=== PATIENT | female | born 1945 | race Caucasian/White ===

== ENCOUNTER → 2017-01-03 | Outpatient (CLI) | payer OTHER | LOC: BHFA 13:30 | PROVIDERS: ATTEND Internal Medicine Cardiovascular Disease | DX: R52 Pain, unspecified (principal); E78.5 Hyperlipidemia, unspecified ==

== ENCOUNTER 2017-09-05 20:12 | Emergency (ER) | payer OTHER ==
[2017-09-05] MEDS ORDERED: KETOROLAC 30 MG/1 ML SDV IM ONE (20:32)
--- NOTE | 2017-09-05 20:35 | EDPHY ---
H & P Time Seen by Provider: 09/05/17 20:22 HPI/ROS: CHIEF COMPLAINT: Right rib pain HISTORY OF PRESENT ILLNESS: The patient is a 72-year-old female who fell and hit the right side of her ribs on the toilet paper [place] early this afternoon. She had been drinking prior to that. She has had persistent rib pain on the right ever since. It hurts with laughing. No pain with deep inspiration. She denies shortness of breath. She denies abdominal pain. No head injury. No loss of consciousness. She lost her balance in the bathroom. This was a mechanical fall. She also reports a history of esophageal cancer with large doses of radiation and refuses to have any imaging done here. She also is currently dealing with shingles to the right gluteus. She took hydrocodone this afternoon for that. REVIEW OF SYSTEMS: Constitutional: denies: chills, fever, recent illness, recent injury EENTM: denies: blurred vision, double vision, nose congestion Respiratory: denies: cough, shortness of breath Cardiac: denies: chest pain, irregular heart rate, lightheadedness, palpitations Gastrointestinal/Abdominal: denies: abdominal pain, diarrhea, nausea, vomiting, blood streaked stools Genitourinary: denies: dysuria, frequency, hematuria, pain Musculoskeletal: See HPI Skin: denies: lesions, rash, jaundice, bruising Neurological: denies: headache, numbness, paresthesia, tingling, dizziness, weakness Hematologic/Lymphatic: denies: blood clots, easy bleeding, easy bruising Immunologic/allergic: denies: HIV/AIDS, transplant EXAM: GENERAL: Well-appearing, well-nourished and in no acute distress. HEAD: Atraumatic, normocephalic. EYES: Pupils equal round and reactive to light, extraocular movements intact, sclera anicteric, conjunctiva are normal. ENT: TMs normal, nares patent, oropharynx clear without exudates. Moist mucous membranes. NECK: Normal range of motion, supple without lymphadenopathy or JVD. LUNGS: Breath sounds clear to auscultation bilaterally and equal. No wheezes rales or rhonchi. Mild right anterior rib tenderness. No crepitus HEART: Regular rate and rhythm without murmurs, rubs or gallops. ABDOMEN: Soft, nontender, normoactive bowel sounds. No guarding, no rebound. No masses appreciated. BACK: No CVA tenderness, no spinal tenderness, step-offs or deformities EXTREMITIES: Normal range of motion, no pitting or edema. No clubbing or cyanosis. NEUROLOGICAL: Cranial nerves II through XII grossly intact. Normal speech, normal gait. 5/5 strength, normal movement in all extremities, normal sensation PSYCH: Normal mood, normal affect. SKIN: Warm, dry, normal turgor, no visible rashes or lesions. Source: Patient Exam Limitations: No limitations - Personal History Tetanus Vaccine Date: WITHIN 10 YRS - Medical/Surgical History Hx Asthma: No Hx Chronic Respiratory Disease: No Hx Diabetes: No Hx Cardiac Disease: No Hx Renal Disease: No Hx Cirrhosis: No Hx Alcoholism: Yes Hx HIV/AIDS: No Other PMH: THROAT AND ESOPHAGUS CA - REMISSION, LOW BLOOD PRESSURE, HIGH CHOLESTROL, C/S - Family History Significant Family History: No pertinent family hx - Social History Smoking Status: Never smoked Alcohol Use: Heavy Drug Use: None Constitutional: Initial Vital Signs Temperature (C) 36.8 C 09/05/17 20:40 Heart Rate 99 09/05/17 20:40 Respiratory Rate 18 09/05/17 20:40 Blood Pressure 133/74 H 09/05/17 20:40 O2 Sat (%) 92 09/05/17 20:40 O2 Delivery Mode Room Air Allergies/Adverse Reactions: aspirin [Aspirin] Allergy (Intermediate, Verified 09/05/17 20:46) Home Medications: Medication Instructions Recorded Hydrocodone-Acetamin 5-325 mg 09/05/17 Oxycodone HCl 5 mg PO Q6 PRN #10 capsule 09/05/17 Medical Decision Making - Diagnostics Imaging: I viewed and interpreted images myself (No fractures or pneumothorax) ED Course/Re-evaluation: 9:50 p.m. we discussed the x-ray results which are reassuring. The patient is feeling significantly better after Toradol. She is asking for a wrap. She states that this has helped in the past. We will wrap her with a white Landen bandage. She is also asking for oxycodone. I will give her a small prescription in a take-home pack. She typically does not like Tylenol but we do not have any others for take-home. Differential Diagnosis: Partial list of the Differential diagnosis considered include but were not limited to; rib contusion, fracture and although unlikely based on the history and physical exam, I also considered pneumothorax, liver injury, kidney injury, assault. I discussed these differential diagnoses and the plan with the patient as well as the usual and expected course. The patient understands that the diagnosis is provisional and that in medicine we are not always correct and that further workup is often warranted. Usual and customary warnings were given. All of the patient's questions were answered. The patient was instructed to return to the emergency department should the symptoms at all worsen or return, otherwise to followup with the physician as we discussed. - Data Points Medications Given: Discontinued Medications Ketorolac Tromethamine (Toradol) 30 mg IM EDNOW ONE Stop: 09/05/17 20:33 Last Admin: 09/05/17 20:49 Dose: 30 mg Oxycodone/Acetaminophen (Percocet 5/325mg Prepack#4) 1 btl TAKEHOME EDNOW ONE Stop: 09/05/17 21:52 Last Admin: 09/05/17 21:56 Dose: 1 btl Departure - Departure Disposition: Home, Routine, Self-Care Clinical Impression: Contusion of rib on right side Qualifiers: Encounter type: initial encounter Qualified Code(s): S20.211A - Contusion of right front wall of thorax, initial encounter Condition: Fair Instructions: Oxycodone/Acetaminophen (By mouth), Rib Contusion (ED) Referrals: FLORENTINO DOMINGUEZ [Primary Care Provider] - As per Instructions Prescriptions: Oxycodone HCl 5 mg PO Q6 PRN #10 capsule PRN Reason: Pain, Severe
[2017-09-05] MEDS ORDERED: OXYCODONE/APAP 5/325MG PREPACK#4 BTL TAKEHOME ONE (21:51)
[2017-09-05 22:03] VITALS: BP 106/74
== END 2017-09-05 22:05 | disposition home or self-care (01) ==
LOC: CED 20:12
DX: S20.211A Contusion of right front wall of thorax, initial encounter (principal); Z85.01 Personal history of malignant neoplasm of esophagus; Z85.819 Personal history of malignant neoplasm of unspecified site of lip, oral cavity, and pharynx; W18.09XA Striking against other object with subsequent fall, initial encounter
CPT/HCPCS: 71101; 96372; 99284; J1885

== ENCOUNTER → 2018-05-21 | Outpatient (CLI) | payer OTHER | LOC: CIMAGING 11:57 | PROVIDERS: ATTEND Family Medicine | DX: M25.551 Pain in right hip (principal) | CPT/HCPCS: 73502-PO ==

== ENCOUNTER → 2018-06-19 | Outpatient (CLI) | payer OTHER | LOC: FIMAGING 19:19 | PROVIDERS: ATTEND Family Medicine | DX: S73.191A Other sprain of right hip, initial encounter (principal); M76.01 Gluteal tendinitis, right hip; M25.551 Pain in right hip ==